=== PATIENT | male | born 1930 | race Caucasian/White ===

== ENCOUNTER 2019-12-18 09:33 | Day surgery (SDC) | payer MEDICARE, OTHER ==
[2019-12-15 12:57] LABS: BASOPHILS % (AUTO) 0.9 % (0-1); EOSINOPHILS # (AUTO) 0.1 X10'3 (0-0.9); EOSINOPHILS % (AUTO) 2.2 % (0-6); LYMPHOCYTES # (AUTO) 1.3 X10'3 (1.1-4.8); LYMPHOCYTES % (AUTO) 22.6 % (21-51); MEAN CORPUSCULAR HEMOGLOBIN 33.4 PG (27.0-31.0); MEAN CORPUSCULAR VOLUME 101.1 FL (78-98); MEAN PLATELET VOLUME 8.4 FL (7.4-10.4); MONOCYTES # (AUTO) 0.4 X10'3 (0-0.9); NEUTROPHILS # (AUTO) 3.7 X10'3 (1.8-7.7); NEUTROPHILS % (AUTO) 67.3 % (42-75); PRE OP HEMATOCRIT 34.7 % (42.0-52.0); PRE OP HEMOGLOBIN 11.5 g/dL (14.0-17.9); PRE OP PLATELET COUNT 206 X10'3 (140-440); RED BLOOD COUNT 3.43 X10'6 (4.70-6.10); RED CELL DISTRIBUTION WIDTH 15.9 % (11.5-14.5)
[2019-12-15 13:09] LABS: CLARITY,URINE CLEAR (Clear); COLOR,URINE YELLOW (Yellow); GLUCOSE, URINE NEGATIVE (Neg); KETONES,URINE NEGATIVE (Neg); LEUKOCYTE ESTERASE ,URINE NEGATIVE (Neg); NITRITES, URINE NEGATIVE (Neg); OCCULT BLOOD,URINE NEGATIVE (Neg); PROTEIN,URINE 30 mg/dl (Neg); UROBILINOGEN,URINE 0.2 E.U/dL (0.2-1.0)
[2019-12-15 13:10] LABS: PRE OP PROTIME 10.3 SECONDS (9.0-12.0)
[2019-12-15 13:10] LABS: UA COLLECTION TYPE CLN CATCH MIDSTREAM
[2019-12-15 13:16] LABS: ALBUMIN 3.7 G/DL (3.4-5.0); ALBUMIN/GLOBULIN RATIO 1.1 (1.1-1.5); ALKALINE PHOSPHATASE 73 IU/L (46-116); BLOOD UREA NITROGEN 65 MG/DL (7-18); BUN/CREATININE RATIO 23.3 (5.4-32.0); CALCIUM 8.6 MG/DL (8.5-10.1); CHLORIDE 103 MMOL/L (99-107); CREATININE 2.79 MG/DL (0.60-1.10); PRE OP ALT 26 U/L (30-65); PRE OP ANION GAP 8 (8-16); PRE OP AST 21 U/L (10-37); PRE OP BILIRUB, TOTAL 0.4 MG/DL (0.0-1.0); PRE OP GLUCOSE 92 MG/DL (70-104); PRE OP POTASSIUM 5.5 MMOL/L (3.4-5.1); PRE OP SODIUM 134 MMOL/L (135-145); TOTAL CARBON DIOXIDE 22.6 MMOL/L (24-32); TOTAL PROTEIN 7.1 G/DL (6.4-8.2); eGFR 22 ML/MIN
[2019-12-15 13:24] LABS: BACTERIA,URINE NONE SEEN /HPF (Neg); HYALINE CASTS 0-3 /LPF (NEGATIVE); RBC,URINE NONE SEEN /HPF (0-2); SQUAMOUS EPITHELIAL CELL,UR FEW /LPF (FEW); WBC,URINE NONE SEEN /HPF (0-4)
[~2019-12-18] VITALS: Ht 175.3 cm; Wt 85.0 kg
[2019-12-18] VITALS (8 sets, daily range): BP systolic 108–154; BP diastolic 51–83
[~2019-12-18 09:33] MED LIST: ALLO100T PO; AMIO100T3 PO; APIX5TAB3 PO; ASPI-1265 PO; BETA1TAB18 PO; CALC-159 PO; FURO-150 PO; LOSA50TA64 PO; MULT-1085 PO; SIMV-42 PO; cefazolin/dext.iso 2gm/50ml 50 ML IV ONE; famotidine 20mg tablet PO ONE; ringers solution, lacted 1,000 ML IV SCH
[2019-12-18] MEDS ORDERED: LIDOcaine 1% 30ml preserv. free vial ONE (12:31)
[2019-12-18] MEDS ORDERED: fentaNYL/PF 50MCG/1 ML 2ML syringe ONE (13:11)
[2019-12-18] MEDS ORDERED: midazolam 2 mg/2 ml injection ONE (13:13)
[2019-12-18] MEDS ORDERED: propofol inj 20 ML IV ONE ×2 (13:19)
--- NOTE | 2019-12-18 13:55 | NUR ---
Received from OR via , accompanied by Anesthesiologist DR VERA and report given by Anesthesiolgist. AWAKENS TO VOICE. VITALS STABLE. DRESSING DI. GILL PAIN. 1000CC IV BAG PLACED TO SURGICAL SITE PER SURGEON.
[2019-12-18] MEDS ORDERED: ringers solution, lacted 1,000 ML IV ONE (14:08)
[2019-12-18] MEDS ORDERED: acetaminophen 1,000mg/100ml IV 100 ML IV PRN (14:10)
[2019-12-18] MEDS ORDERED: ondansetron/PF 4mg/2ml inj IV PRN (14:10)
[2019-12-18] MEDS ORDERED: proCHLORperazine 10 MG/2 ml inj IV PRN (14:10)
[2019-12-18] MEDS ORDERED: meperidine/PF 25mg/ml syringe IV PRN ×2 (14:10)
[2019-12-18] MEDS ORDERED: hydrALAZINE 20mg/ml inj. IV PRN (14:10)
[2019-12-18] MEDS ORDERED: labetalol 20mg/4ml (5mg/ml) syringe IV PRN (14:10)
[2019-12-18] MEDS ORDERED: morphine 2 MG/ML inj. syringe IV PRN (14:10)
--- NOTE | 2019-12-18 15:05 | NUR ---
AWAKE AND ORIENTED. VITALS STABLE. DRESSING DI. GILL PAIN. HOME WITH HIS SON AT THIS TIME.
== END 2019-12-18 15:05 | disposition home or self-care (01) ==
LOC: PAS 09:33
PROVIDERS: ATTEND Surgery
DX: Z45.010 Encounter for checking and testing of cardiac pacemaker pulse generator [battery] (principal); I13.0 Hypertensive heart and chronic kidney disease with heart failure and stage 1 through stage 4 chronic kidney disease, or unspecified chronic kidney disease; N18.9 Chronic kidney disease, unspecified; I50.9 Heart failure, unspecified; I25.10 Atherosclerotic heart disease of native coronary artery without angina pectoris; M10.9 Gout, unspecified; E78.5 Hyperlipidemia, unspecified; N17.9 Acute kidney failure, unspecified; Z72.89 Other problems related to lifestyle; Z79.899 Other long term (current) drug therapy; Z79.01 Long term (current) use of anticoagulants; Z20.828 Contact with and (suspected) exposure to other viral communicable diseases; Z95.1 Presence of aortocoronary bypass graft; Z87.891 Personal history of nicotine dependence; Z86.73 Personal history of transient ischemic attack (TIA), and cerebral infarction without residual deficits; Z90.49 Acquired absence of other specified parts of digestive tract; Z98.890 Other specified postprocedural states
CPT/HCPCS: 33228; 36415; 71046; 80053; 81001; 82948; 85025; 85610; 85730; 87635; 93005; C1785; J2001; J2250; J2704; J3010; J7120; A4215; A4618; A6258; A7000